=== PATIENT | female | born 1980 | race Caucasian/White ===

== ENCOUNTER 2017-09-24 08:50 | Inpatient (IN) | payer BC ==
[2017-09-24 10:35] VITALS: BMI 30.2
[2017-09-24] MEDS ORDERED: DINOPROSTONE 10 MG VAGINAL SUPPOSITORY VG ONE (10:45)
[2017-09-24] MEDS ORDERED: TUBERCULIN PPD 5 TU/0.1ML SYRINGE (IN PATIENT USE ONLY) ID ONE (10:45)
[2017-09-24] MEDS ORDERED: PROMETHAZINE HCL 25 MG/1 ML VIAL IVPUSH ONE (11:05)
[2017-09-24] MEDS ORDERED: BUTORPHANOL TARTRATE 1 MG/ML VIAL IVPUSH ONE (11:05)
[2017-09-24 11:22] LABS: BASOPHIL 0.3 % (0-2.0); EOSINOPHIL 0.5 % (0-4.5); MCHC 34.3 g/dl (32.0-36.0); MEAN CELL VOLUME 90.2 fl (80-96); MEAN PLT VOLUME 8.4 fl (7.5-11.1); NEUTROPHILS 74.3 % (42.8-82.8); PLATELET COUNT 218 K/MM3 (134-434); RDW 13.6 % (11.6-15.6); WHITE BLOOD COUNT 9.6 K/mm3 (4.0-10.0)
[2017-09-24 11:43] LABS: INR 0.95 (0.82-1.09); PROTHROMBIN TIME (PATIENT) 10.7 SEC (9.98-11.88)
[2017-09-24 11:45] LABS: ACTIVATED PTT 25.9 SECONDS (26.9-34.4)
[2017-09-24 11:56] LABS: ANION GAP 10 (8-16); CALCIUM 8.7 mg/dL (8.5-10.1); CO2 23 mmol/L (21-32); CREATININE 0.5 mg/dL (0.55-1.02); GLUCOSE,RANDOM 70 mg/dL (74-106)
[2017-09-24 14:36] LABS: HIV 1 & 2 AB NEGATIVE; HIV 1 AGp24 NEGATIVE
--- NOTE | 2017-09-24 14:53 | HP ---
Past Medical History - Primary Care Physician PCP:: Segundo Topete - Admission Chief Complaint: 40.1 weeks, AMA, IVF ,request of induction History of Present Illness: 37 y o f with hx of IVF, ama 40.1 weeks, requesting induction , rba discussed, cx closed 25, vx -3 mi, fhr cat1 no contraction History Source: Patient Limitations to Obtaining History: No Limitations - Past Medical History ...: 1 ...Para: 0 ...EDC by Sono: 09/24/17 Endocrine: Yes: Hypothyroidism - Past Surgical History Hx Myomectomy: No Hx Transabdominal Cerclage: No - Smoking History Smoking history: Never smoked - Alcohol/Substance Use Hx Alcohol Use: No - Social History Usual Living Arrangement: Yes: With Spouse History of Recent Travel: No Home Medications - Allergies Allergies/Adverse Reactions: Allergies Allergy/AdvReac Type Severity Reaction Status Date / Time latex Allergy Intermediate Verified 09/24/17 10:09 No Known Drug Allergies Allergy Verified 09/24/17 10:39 - Home Medications Home Medications: Ambulatory Orders Vitamins (Sjr) - 1 tab PO DAILY 09/24/17 Synthroid 75 mcg PO DAILY 09/24/17 Review of Systems - Review of Systems Constitutional: reports: No Symptoms Eyes: reports: No Symptoms Neck: reports: Stiffness Cardiovascular: reports: No Symptoms Respiratory: reports: No Symptoms Gastrointestinal: reports: No Symptoms Genitourinary: reports: No Symptoms Breasts: reports: No Symptoms Reported Musculoskeletal: reports: No Symptoms Integumentary: reports: No Symptoms Neurological: reports: No Symptoms Endocrine: reports: No Symptoms Hematology/Lymphatic: reports: No Symptoms Psychiatric: reports: No Symptoms Physical Exam - Maternity Vital Signs: Vital Signs Temperature 97.8 F 09/24/17 14:00 Pulse Rate 86 09/24/17 14:00 Respiratory Rate 18 09/24/17 14:00 Blood Pressure 135/75 09/24/17 14:00 O2 Sat by Pulse Oximetry (%) Constitutional: Yes: Well Nourished, No Distress, Calm Eyes: Yes: WNL, Conjunctiva Clear, EOM Intact HENT: Yes: WNL, Atraumatic, Normocephalic Neck: Yes: WNL, Supple, Trachea Midline Cardiovascular: Yes: WNL, Regular Rate and Rhythm Breast(s): Yes: WNL - Abdominal Exam/OB Fundal Height: 40 Number of Fetuses: Single Presentation: Vertex Contractions: No Intensity: Unaware Monitor Mode: External Heart Rate Location: [facility] Category: I Accelerations: Uniform Decelerations: None - Vaginal Exam/OB Vaginal Bleediing: No Speculum Exam: No Dilatation (cm): closed Effacement (%): 25 Amniotic Membrane Status: Intact Presentation: Vertex/Position Station: -3 - Physical Exam Edema: Yes Edema: LLE: Trace, RLE: Trace Deep Tendon Reflex Grade: Normal +2 Psychiatric: Yes: Alert - Labs Lab Results: CBC, BMP 09/24/17 11:03 09/24/17 11:03 Hemorrhage Risk Assessment - Risk Factors Medium Risk Factors: Yes: None High Risk Factors: Yes: None Risk Score: 1 Risk Level: Medium Risk Problem List - Problems (1) Postmaturity , 40-42 weeks gestation Code(s): O48.0 - POST-TERM (2) Post term over 40 weeks Code(s): O48.0 - POST-TERM (3) AMA (advanced maternal age) multigravida 35+ Code(s): O09.529 - SUPERVISION OF ELDERLY MULTIGRAVIDA, UNSPECIFIED TRIMESTER Qualifiers: Trimester: third trimester Qualified Code(s): O09.523 - Supervision of elderly multigravida, third trimester (4) Conceived by in vitro fertilization Code(s): Z78.9 - OTHER SPECIFIED HEALTH STATUS Assessment/Plan plan admit for cervidil induction
--- NOTE | 2017-09-24 15:03 | PN ---
Progress Note (short form) - Note Progress Note: fhr cat 1, cervidil inserted at 10 45 am, rba discussed Problem List - Problems (1) Postmaturity , 40-42 weeks gestation Code(s): O48.0 - POST-TERM (2) Post term over 40 weeks Code(s): O48.0 - POST-TERM (3) AMA (advanced maternal age) multigravida 35+ Code(s): O09.529 - SUPERVISION OF ELDERLY MULTIGRAVIDA, UNSPECIFIED TRIMESTER Qualifiers: Trimester: third trimester Qualified Code(s): O09.523 - Supervision of elderly multigravida, third trimester (4) Conceived by in vitro fertilization Code(s): Z78.9 - OTHER SPECIFIED HEALTH STATUS
--- NOTE | 2017-09-25 00:16 | PN ---
Progress Note (short form) - Note Progress Note: cx closed, 50, vx, cervidil removed fhr cat1 Problem List - Problems (1) Postmaturity , 40-42 weeks gestation Code(s): O48.0 - POST-TERM (2) Post term over 40 weeks Code(s): O48.0 - POST-TERM (3) AMA (advanced maternal age) multigravida 35+ Code(s): O09.529 - SUPERVISION OF ELDERLY MULTIGRAVIDA, UNSPECIFIED TRIMESTER Qualifiers: Trimester: third trimester Qualified Code(s): O09.523 - Supervision of elderly multigravida, third trimester (4) Conceived by in vitro fertilization Code(s): Z78.9 - OTHER SPECIFIED HEALTH STATUS
[2017-09-25] MEDS ORDERED: OXYTOCIN 15 UNITS/ LR 250 ML 15 UNIT/250 ML INFUS.BAG IVPB SCH (00:30)
[2017-09-25] MEDS ORDERED: OXYTOCIN 15 UNITS/ LR 250 ML 15 UNIT/250 ML INFUS.BAG IVPB ONE (00:40)
[2017-09-25] MEDS: DEXTROSE 5%-LACTATED RINGERS 1,000 ML IV SCH ×2 (01:00→08:45)
[2017-09-25] MEDS: LEVOTHYROXINE NA 75 MCG TABLET (FP) PO SCH (06:58)
--- NOTE | 2017-09-25 08:51 | PN ---
Progress Note (short form) - Note Progress Note: cx closed 70 vx -3 mi, fhr cat 1, contraction q 2 min Problem List - Problems (1) Postmaturity , 40-42 weeks gestation Code(s): O48.0 - POST-TERM (2) Post term over 40 weeks Code(s): O48.0 - POST-TERM (3) AMA (advanced maternal age) multigravida 35+ Code(s): O09.529 - SUPERVISION OF ELDERLY MULTIGRAVIDA, UNSPECIFIED TRIMESTER Qualifiers: Trimester: third trimester Qualified Code(s): O09.523 - Supervision of elderly multigravida, third trimester (4) Conceived by in vitro fertilization Code(s): Z78.9 - OTHER SPECIFIED HEALTH STATUS
[2017-09-25] MEDS ORDERED: CITRIC ACID/SODIUM CITRATE 30 ML UNIT-DOSE CUP PO ONE (09:45)
[2017-09-25] MEDS ORDERED: SYNTHROID 75 MCG PO SCH (10:00)
[2017-09-25] MEDS ORDERED: morphine SULFATE/Preservative Free 0.5 MG/ML (1cc Syringe) ONE (13:51)
[2017-09-25] MEDS ORDERED: ONDANSETRON 4 MG/2 ML VIAL IVPUSH PRN (14:02)
[2017-09-25] MEDS ORDERED: ePHEDrine SULFATE 50 MG/1 ML AMPULE ONE (14:20)
[2017-09-25] MEDS ORDERED: SUCCINYLCHOLINE CHLORIDE 200 MG/10 ML VIAL ONE (14:20)
[2017-09-25] MEDS ORDERED: KETOROLAC TROMETHAMINE 30 MG/1 ML VIAL ONE (14:28)
[2017-09-25] MEDS ORDERED: OXYTOCIN 20 UNITS in 0.9% NS 20 UNIT/1,000 ML INFUS.BAG IV ONE ×2 (14:56→17:09)
[2017-09-25] MEDS ORDERED: ELECTROLYTE-148 SOLN 1,000 ML IV SCH (15:00)
--- NOTE | 2017-09-25 15:02 | PN ---
Progress Note (short form) - Note Progress Note: cx closed , 50 vx -3 mi, no cervical changes with pitocin a.wants c/s ,rba discussed Problem List - Problems (1) Postmaturity , 40-42 weeks gestation Code(s): O48.0 - POST-TERM (2) Post term over 40 weeks Code(s): O48.0 - POST-TERM (3) AMA (advanced maternal age) multigravida 35+ Code(s): O09.529 - SUPERVISION OF ELDERLY MULTIGRAVIDA, UNSPECIFIED TRIMESTER Qualifiers: Trimester: third trimester Qualified Code(s): O09.523 - Supervision of elderly multigravida, third trimester (4) Conceived by in vitro fertilization Code(s): Z78.9 - OTHER SPECIFIED HEALTH STATUS
[2017-09-25] MEDS ORDERED: ceFAZolin SODIUM 1 GM VIAL ONE (15:16)
[2017-09-25] MEDS ORDERED: BENZOCAINE 20% 57 GM BOTTLE TP PRN (15:52)
[2017-09-25] MEDS ORDERED: METHYLERGONOVINE MALEATE 0.2 MG/1 ML AMP IM PRN (15:52)
[2017-09-25] MEDS ORDERED: diphenhydrAMINE HCL 25 MG CAPSULE (FP) PO PRN (15:52)
[2017-09-25] MEDS ORDERED: WITCH HAZEL 50% (TUCKS) 40 PAD/JAR PAD TP PRN (15:52)
[2017-09-25] MEDS ORDERED: IBUPROFEN 800 MG/8 ML IJ IVPB PRN (15:52)
[2017-09-25] MEDS ORDERED: BENZOCAINE 28 GM HEMORRHOIDAL OINTMENT PR PRN (15:52)
[2017-09-25] MEDS ORDERED: DEXTROSE 5%-LACTATED RINGERS 1,000 ML IV SCH (16:00)
[2017-09-25] MEDS ORDERED: OXYTOCIN 20 UNITS in 0.9% NS 20 UNIT/1,000 ML INFUS.BAG IV SCH (16:00)
[2017-09-25] MEDS: CEFAZOLIN 1 GM PUSH 1 GM/10 ML DISP.SYRIN IVPUSH SCH (23:04)
--- NOTE | 2017-09-26 03:00 | PN ---
Post Progress Note - Subjective Subjective: Patient without acute complaints. Currently NPO Hernandez DC'd this AM, no voiding yet. No ambulation or flatus yet. Denies fevers or chills. Pain well controlled. Post Day: 1 Type of Delivery: Primary C/S Vital Signs: Vital Signs Temperature 100.0 F H 09/26/17 01:04 Pulse Rate 80 09/26/17 01:04 Respiratory Rate 20 09/26/17 01:04 Blood Pressure 122/66 09/26/17 01:04 O2 Sat by Pulse Oximetry (%) 100 09/25/17 17:05 Breast Exam: Yes: Soft Uterus: Yes: Fundus Firm, Fundus below umbilicus, Non-tender Incision: Yes: Dressing dry and intact Abdomen/GI: Yes: Abdomen soft. No: Tender, Passing flatus Lochia: Yes: Serosa Lochia, amount: Small Extremities: Yes: Calves non-tender. No: Edema - Labs Labs: CBC WBC 9.6 K/mm3 (4.0-10.0) 09/24/17 11:03 RBC 3.75 M/mm3 (3.60-5.2) 09/24/17 11:03 Hgb 11.6 GM/dL (10.7-15.3) 09/24/17 11:03 Hct 33.8 % (32.4-45.2) 09/24/17 11:03 MCV 90.2 fl (80-96) 09/24/17 11:03 MCH 31.0 pg (25.7-33.7) 09/24/17 11:03 MCHC 34.3 g/dl (32.0-36.0) 09/24/17 11:03 RDW 13.6 % (11.6-15.6) 09/24/17 11:03 Plt Count 218 K/MM3 (134-434) 09/24/17 11:03 MPV 8.4 fl (7.5-11.1) 09/24/17 11:03 Neutrophils % 74.3 % (42.8-82.8) 09/24/17 11:03 Lymphocytes % 16.6 % (8-40) 09/24/17 11:03 Monocytes % 8.3 % (3.8-10.2) 09/24/17 11:03 Eosinophils % 0.5 % (0-4.5) 09/24/17 11:03 Basophils % 0.3 % (0-2.0) 09/24/17 11:03 Assessment/Plan 37 yo POD # 1 s/p CD, afebrile, vital signs stable, doing well 1. Continue routine postoperative care. 2. Follow up AM CBC 3. Rh positive status, no rhogam indicated. 4. Encourage ambulation and incentive spirometer use 5. Continue oral pain medication 6. Anticipate discharge home postoperative day #3 or #4
[2017-09-26] MEDS: CEFAZOLIN 1 GM PUSH 1 GM/10 ML DISP.SYRIN IVPUSH SCH (06:01)
[2017-09-26] MEDS: LEVOTHYROXINE NA 75 MCG TABLET (FP) PO SCH (06:13)
[2017-09-26] MEDS ORDERED: ACETAMINOPHEN 325 MG TABLET (FP) ONE (07:55)
--- NOTE | 2017-09-26 07:56 | OP ---
DATE OF OPERATION: 09/25/2017 PREOPERATIVE DIAGNOSES: at 40 weeks, advanced maternal age, in vitro fertilization , and Cervidil and Pitocin induction, failure of induction. POSTOPERATIVE DIAGNOSES: at 40 weeks, advanced maternal age, in vitro fertilization , and Cervidil and Pitocin induction, failure of induction. PROCEDURE: Primary low-segment transverse section and cord blood collection. SURGEON: Segundo Topete MD WEB DEVELOPER PROGRAMMER: LEXIE Nazario ESTIMATED BLOOD LOSS: 500 mL DESCRIPTION OF OPERATIVE PROCEDURE: Patient was taken to the operating room. Under adequate spinal anesthesia, abdomen and perineum were prepped and draped. Pfannenstiel abdominal skin incision was made. Abdominal wall was cut layer by layer until peritoneum was exposed and incised. Upon entering the abdominal cavity, lower uterine segment was identified and uterovesical fold of peritoneum established. Bladder was pushed down. A low transverse uterine incision was made. Incision extended laterally. Amniotic sac was entered, clear fluid. Head delivered from occiput posterior position. Nasopharynx was suctioned, and live baby girl was delivered. Placenta was delivered manually. Uterine cavity was cleaned of all remaining tissue. Uterine incision was closed in 2 layers, first layer with 0 Biosyn continuous suture, the second layer with 0 Biosyn imbricating the first layer. Bladder flap was closed with 0 Biosyn continuous suture. Both tubes and ovaries were checked and normal. No active bleeding was seen. All the lap pads, sponge, and instrument counts were correct. Then, peritoneum was closed with 0 Biosyn continuous suture. Muscles were brought together with interrupted suture of 0 Biosyn. Fascia was closed with 0 Biosyn continuous suture, subcutaneous fat with interrupted suture of 3-0 Biosyn, and the skin was closed with 4-0 Biosyn subcuticular suture. Patient tolerated the procedure well, left the OR in good condition. Farhat [id number]
[2017-09-26] MEDS: IBUPROFEN 600 MG TABLET (FP) PO PRN ×3 (08:00→21:28)
[2017-09-26] MEDS: SIMETHICONE 80 MG TAB.CHEW (FP) PO PRN ×3 (08:01→17:34)
[2017-09-26 08:41] LABS: BASOPHIL 0.3 % (0-2.0); EOSINOPHIL 0.4 % (0-4.5); MCH 30.3 pg (25.7-33.7); MCHC 33.3 g/dl (32.0-36.0); MEAN CELL VOLUME 91.1 fl (80-96); MEAN PLT VOLUME 8.6 fl (7.5-11.1); NEUTROPHILS 78.3 % (42.8-82.8); PLATELET COUNT 206 K/MM3 (134-434); RDW 14.1 % (11.6-15.6); WHITE BLOOD COUNT 12.8 K/mm3 (4.0-10.0)
[2017-09-26] MEDS: ENOXAPARIN NA (PORCINE) 40 MG/0.4 ML DISP.SYRIN SQ SCH (10:13)
[2017-09-26] MEDS: DEXTROSE 5%-LACTATED RINGERS 1,000 ML IV SCH (14:57)
[2017-09-26] MEDS: ACETAMINOPHEN 325 MG TABLET (FP) PO PRN ×2 (15:47→21:27)
[2017-09-26] MEDS ORDERED: BISACODYL 10 MG SUPP.RECT PR PRN (15:52)
[2017-09-26] MEDS: oxyCODONE HCL 5 MG TABLET PO PRN ×2 (17:34→21:27)
[2017-09-27] MEDS: SIMETHICONE 80 MG TAB.CHEW (FP) PO PRN ×4 (01:40→22:10)
[2017-09-27] MEDS: IBUPROFEN 600 MG TABLET (FP) PO PRN ×3 (01:41→22:09)
[2017-09-27] MEDS: oxyCODONE HCL 5 MG TABLET PO PRN ×4 (01:41→17:56)
[2017-09-27] MEDS: LEVOTHYROXINE NA 75 MCG TABLET (FP) PO SCH (06:12)
--- NOTE | 2017-09-27 08:21 | PN ---
Post Progress Note - Subjective Subjective: No complaints, doing well. Post Day: 2 Type of Delivery: Primary C/S Vital Signs: Vital Signs Temperature 98.6 F 09/27/17 08:14 Pulse Rate 73 09/27/17 08:14 Respiratory Rate 20 09/27/17 08:14 Blood Pressure 106/53 09/27/17 08:14 O2 Sat by Pulse Oximetry (%) 100 09/25/17 17:05 Breast Exam: Yes: Soft Uterus: Yes: Fundus Firm, Fundus below umbilicus, Non-tender Incision: Yes: Sutures intact Abdomen/GI: Yes: Abdomen soft, Tolerating PO Lochia: Yes: Rubra Lochia, amount: Small Extremities: Yes: Calves non-tender Perineum: Yes: Intact Activity: Ambulating - Labs Labs: CBC WBC 12.8 K/mm3 (4.0-10.0) H D 09/26/17 08:00 RBC 3.33 M/mm3 (3.60-5.2) L 09/26/17 08:00 Hgb 10.1 GM/dL (10.7-15.3) L D 09/26/17 08:00 Hct 30.4 % (32.4-45.2) L 09/26/17 08:00 MCV 91.1 fl (80-96) 09/26/17 08:00 MCH 30.3 pg (25.7-33.7) 09/26/17 08:00 MCHC 33.3 g/dl (32.0-36.0) 09/26/17 08:00 RDW 14.1 % (11.6-15.6) 09/26/17 08:00 Plt Count 206 K/MM3 (134-434) 09/26/17 08:00 MPV 8.6 fl (7.5-11.1) 09/26/17 08:00 Neutrophils % 78.3 % (42.8-82.8) 09/26/17 08:00 Lymphocytes % 13.1 % (8-40) D 09/26/17 08:00 Monocytes % 7.9 % (3.8-10.2) 09/26/17 08:00 Eosinophils % 0.4 % (0-4.5) 09/26/17 08:00 Basophils % 0.3 % (0-2.0) 09/26/17 08:00 Assessment/Plan 37yo P1 s/p primary LT C/S, doing well stable, afebrile. care instructions reviewed. Continue routine postop care. Ambulation encouraged.
--- NOTE | 2017-09-27 08:27 | DS ---
Physical Exam-IRRIGATION ENGINEER Vital Signs: Vital Signs Temperature 98.6 F 09/27/17 08:14 Pulse Rate 73 09/27/17 08:14 Respiratory Rate 20 09/27/17 08:14 Blood Pressure 106/53 09/27/17 08:14 O2 Sat by Pulse Oximetry (%) 100 09/25/17 17:05 Constitutional: Yes: Well Nourished, No Distress, Calm Eyes: Yes: WNL, Conjunctiva Clear HENT: Yes: WNL, Atraumatic, Normocephalic Neck: Yes: WNL, Supple, Trachea Midline Cardiovascular: Yes: WNL, Regular Rate and Rhythm Respiratory: Yes: WNL, Regular, CTA Bilaterally Gastrointestinal: Yes: WNL, Normal Bowel Sounds, Soft ...Rectal Exam: Yes: Deferred Renal/: Yes: WNL Internal Exam Deferred: Yes ....Post : Yes: Uterus firm, Uterus non-tender Breast(s): Yes: WNL Musculoskeletal: Yes: WNL Extremities: Yes: WNL Edema: Yes Edema: LLE: Trace, RLE: Trace Integumentary: Yes: WNL Wound/Incision: Yes: Clean/Dry, Well Approximated, Sutures Intact Neurological: Yes: WNL, Alert, Oriented ...Motor Strength: WNL Psychiatric: Yes: WNL, Alert, Oriented Labs: CBC, BMP 09/26/17 08:00 09/24/17 11:03 Delivery - Delivery Section: Low Flap Transverse Type of Anesthesia: Spinal Episiotomy/Laceration: None EBL (cc): 500 Delivery, Single - Stages of Labor Date of Delivery: 09/25/17 Time of Delivery: 15:26 Time Placenta Delivered: 15:27 Placenta: Yes: Manual Removal, Normal Configuration - Condition of Agency Sales Director/Human Resources Receptionist Present: Yes Name: Paulina Cohen Infant Gender: Female Weight: 3.6 kg Position: Right, OP Total Hours ROM (Hrs/Mins): 2 minutes - 1 Minute Total Score: 9 5 Minutes Total Score: 9 - Feeding Plan Initial Plan: Exclusive throughout hospitalization Discharge Summary Reason For Visit: INDUCTION OF LABOR Current Active Problems AMA (advanced maternal age) multigravida 35+ (Acute) delivery, delivered, current hospitalization (Acute) Conceived by in vitro fertilization (Acute) Post term over 40 weeks (Acute) Postmaturity , 40-42 weeks gestation (Acute) Procedures: Principal: LT C/S Hospital Course: Normal recovery Condition: Good - Instructions Diet, Activity, Other Instructions: Physical activity Resume your normal everyday activity as tolerated no heavy lifting or exercise until seen by your surgeon. You may walk unlimited arabella of and climb stairs. You may resume driving the car when you feel safe and comfortable behind the wheel. No sexual activity as instructed. Wound care If you have a bandage, leave it on, and keep dry for 48-72 hours. After that time discard the outer bandage. If they are tapes on the skin under the out of bandage leave them in place. They will peel off in the next 7 to 10 days. Do Not Peel them off. You may shower the day after surgery. If there are tapes present on the skin, you may shower over them. Diet There are no dietary restrictions. Eat healthy, high-fiber foods. Drink 6 to 8 glasses of liquid each day. This will assist in keeping your bowels are regular. Pain management You may take Tylenol or acetaminophen or Ibuprofen (for example, Motrin, Advil etc.) from my pain prescription medication is ordered should be taken as prescribed for moderate to severe pain. Call MD for any of the following: Severe pain not relieved by medication Fever of 101 or higher Excessive bleeding or drainage on dressing Inability to urinate Referrals: Segundo Topete MD [Staff Physician] - Disposition: HOME - Home Medications Comprehensive Discharge Medication List: Ambulatory Orders Vitamins (Sjr) - 1 tab PO DAILY 09/24/17 Synthroid 75 mcg PO DAILY 09/24/17 Oxycodone HCl/Acetaminophen [Percocet 5-325 mg Tablet -] 1 - 2 tab PO Q6H PRN # 20 tab MDD 8 09/27/17
[2017-09-27] MEDS: ENOXAPARIN NA (PORCINE) 40 MG/0.4 ML DISP.SYRIN SQ SCH (10:19)
[2017-09-27] MEDS: BACITRACIN 15 GM TUBE TOPICAL OINTMENT TP SCH ×2 (11:54→22:15)
--- NOTE | 2017-09-27 17:00 | SURG ---
Surgery Pellet Machine Operator Note Pellet Machine Operator: Chanel Peace PA-C Date of Service: 09/25/17 Diagnosis: at 40 weeks, failure of induction Procedure: section I was present for the entirety of the operative procedure. For further detail, please refer to operative report. Visit type - Case Type Case Type: Scheduled Admission - Emergency Emergency Visit: No - New patient This patient is new to me today: Yes Date on this admission: 09/27/17
[2017-09-27] MEDS: ACETAMINOPHEN 325 MG TABLET (FP) PO PRN ×2 (17:56→22:10)
[2017-09-27] MEDS ORDERED: SENNOSIDES/DOCUSATE COMBO (SENNA PLUS) TABLET (UD) PO PRN (22:00)
[2017-09-28] MEDS ORDERED: ACETAMINOPHEN 325 MG TABLET (FP) PO PRN (01:09)
[2017-09-28] MEDS: SIMETHICONE 80 MG TAB.CHEW (FP) PO PRN ×2 (05:15→11:41)
[2017-09-28] MEDS: oxyCODONE HCL 5 MG TABLET PO PRN (05:15)
[2017-09-28] MEDS: IBUPROFEN 600 MG TABLET (FP) PO PRN ×2 (05:15→11:39)
[2017-09-28] MEDS: LEVOTHYROXINE NA 75 MCG TABLET (FP) PO SCH (06:20)
[2017-09-28 08:47] LABS: BASOPHIL 0.3 % (0-2.0); EOSINOPHIL 2.5 % (0-4.5); MCH 30.9 pg (25.7-33.7); MCHC 33.6 g/dl (32.0-36.0); MEAN CELL VOLUME 91.8 fl (80-96); MEAN PLT VOLUME 8.3 fl (7.5-11.1); NEUTROPHILS 69.7 % (42.8-82.8); PLATELET COUNT 205 K/MM3 (134-434); RDW 13.7 % (11.6-15.6); WHITE BLOOD COUNT 8.2 K/mm3 (4.0-10.0)
[2017-09-28] MEDS: ENOXAPARIN NA (PORCINE) 40 MG/0.4 ML DISP.SYRIN SQ SCH (09:48)
[2017-09-28] MEDS: BACITRACIN 15 GM TUBE TOPICAL OINTMENT TP SCH (10:00)
[2017-09-28 10:24] VITALS: BP 115/65; PULSE 72; TEMP 98.6
--- NOTE | 2017-10-02 14:09 | PATH ---
Surgical Pathology Report Patient Name: ANTONIO LARSON [facility]. Rec. #: [id number] /Age/Gender: 1980 (Age: 37) / F Account: [id number] Location: [facility] OBS/SMALL MACHINE BINDERY OPERATOR Taken: 09/25/2017 Received: 09/26/2017 Reported: 10/02/2017 Physicians: Segundo Topete M.D. Specimen(s) Received PLACENTA Clinical History , advanced maternal age, IVF, 40.1 weeks' gestation Failed induction, history of hypothyroidism Final Diagnosis PLACENTA, DELIVERY: FOCALLY DISRUPTED THIRD TRIMESTER PLACENTA WITH THREE VESSEL UMBILICAL CORD AND UNREMARKABLE PLACENTAL MEMBRANES. Electronically Signed Don Pillai M.D. Gross Description The specimen is received fresh labeled placenta and is a 475 gram, 19.0 x 15.0 x 2.3 cm. placenta with attached membranes and umbilical cord. The attached membranes are rivera, translucent with focal opacities and insert marginally. The umbilical cord measures 25 cm. in length and averages 1.2 cm. in diameter. The cord inserts eccentrically, 3 cm. to the nearest margin. No true knots or strictures are identified. Cut surface of the umbilical cord reveals 3 vessels. The surface is betancur blue with moderate fibrin deposition and appropriate caliber vessels. The maternal surface is red-brown with focal defects. Sectioning reveals red-brown, spongy parenchyma. No lesions are identified. Integration Architect sections are submitted in three cassettes as follows: 1- membrane rolls and umbilical cord; 2-3- full thickness sections of placenta. 09/28/2017 [facility]09/28/2017
== END 2017-09-28 13:00 | disposition home or self-care (01) | DRG 765 ==
LOC: JLDR 08:50 → J3W 09-25 17:58
PROVIDERS: ADMIT Obstetrics & Gynecology; ATTEND Obstetrics & Gynecology
PROC: 10D00Z1 Extraction of Products of Conception, Low, Open Approach (ICD-10-PCS; principal; 2017-09-25)
DX: O48.0 Post-term pregnancy (principal); O36.0930 Maternal care for other rhesus isoimmunization, third trimester, not applicable or unspecified; O61.0 Failed medical induction of labor; O99.283 Endocrine, nutritional and metabolic diseases complicating pregnancy, third trimester; E03.9 Hypothyroidism, unspecified; Z37.0 Single live birth; Z3A.40 40 weeks gestation of pregnancy
CPT/HCPCS: 36415; 80048; 85025; 85610; 85730; 86593; 86850; 86900; 86901; 87389; 88307-TC

== ENCOUNTER 2020-07-14 04:36 | Day surgery (SDC) | payer BC ==
[2020-07-13 12:06] VITALS: BMI 22.8
[2020-07-14] MEDS ORDERED: fentaNYL CITRATE 250 MCG/5 ML VIAL ONE (10:54)
[2020-07-14] MEDS ORDERED: LIDOCAINE HCL/PF 2% SDV 5ML VIAL ONE (10:54)
[2020-07-14] MEDS ORDERED: DEXAMETHASONE SOD PHOSPHATE 4 MG/1 ML VIAL ONE ×2 (10:54→12:46)
[2020-07-14] MEDS ORDERED: ROCURONIUM BROMIDE 50 MG/5 ML SYRINGE ONE (10:54)
[2020-07-14] MEDS ORDERED: PROPOFOL 20 ML ONE (10:54)
[2020-07-14] MEDS ORDERED: MIDAZOLAM HCL 2 MG/2 ML SINGLE DOSE VIAL ONE (10:54)
[2020-07-14] MEDS ORDERED: SCOPOLAMINE HYDROBROMIDE 1 PATCH PATCH.TD72 ONE (11:04)
--- NOTE | 2020-07-14 12:05 | HP ---
History & Physical Update - History History: No Change - Physical Physical: No Change - Assessment Assessment: No Change - Plan Plan: No Change (H&P reviwed , no changed , for laparoscopic BSO ROS discussed with patient negative)
[2020-07-14] MEDS ORDERED: ceFAZolin SODIUM 1 GM VIAL IVPB ONE (12:18)
[2020-07-14] MEDS ORDERED: ceFAZolin SODIUM 1 GM VIAL ONE (12:24)
[2020-07-14] MEDS ORDERED: NEOSTIGMINE METHYLSULFATE 0.5 MG/ML - 10 ML MDV ONE (12:51)
[2020-07-14] MEDS ORDERED: KETOROLAC TROMETHAMINE 30 MG/1 ML VIAL ONE (12:51)
[2020-07-14] MEDS ORDERED: GLYCOPYRROLATE 0.2 MG/1 ML VIAL ONE (12:51)
[2020-07-14] MEDS ORDERED: IBUPROFEN 600 MG TABLET (FP) PO PRN (13:50)
[2020-07-14] MEDS ORDERED: ONDANSETRON 4 MG/2 ML VIAL IVPUSH PRN ×2 (13:50→14:04)
[2020-07-14] MEDS ORDERED: oxyCODONE HCL 5 MG TABLET PO PRN ×2 (13:50→14:04)
[2020-07-14] MEDS ORDERED: IBUPROFEN 800 MG/8 ML IJ IVPB PRN (13:50)
--- NOTE | 2020-07-14 13:53 | OP ---
Operative Note - Note: Operative Date: 07/14/20 Pre-Operative Diagnosis: personal hx of breast cancer Operation: laparoscopic, BSO Findings: bilateral ovarian endometriosis Surgeon: Segundo Topete Power Transformer Repairer: Karly Raines Anesthesia: General Specimens Removed: both tubes and ovaries Estimated Blood Loss (mls): 25 Drains & Tubes with Location: none Blood Volume Replaced (mls): 0 Operative Report Dictated: Yes
[2020-07-14] MEDS ORDERED: ELECTROLYTE-148 SOLN 1,000 ML IV SCH (14:00)
[2020-07-14] MEDS ORDERED: PROMETHAZINE HCL 25 MG/1 ML VIAL IVPUSH PRN (14:04)
[2020-07-14] MEDS ORDERED: LACTATED RINGERS SOLUTION 1,000 ML IV SCH (14:15)
[2020-07-14] MEDS ORDERED: IBUPROFEN 600 MG TABLET (FP) PO ONE (15:35)
[2020-07-14 16:26] VITALS: BP 111/64; PULSE 66; TEMP 97.8
--- NOTE | 2020-07-16 09:44 | OP ---
DATE OF OPERATION: 07/14/2020 PREOPERATIVE DIAGNOSIS: Personal history of breast cancer. POSTOPERATIVE DIAGNOSIS: Personal history of breast cancer. PROCEDURE: Bilateral salpingo-oophorectomy laparoscopic. SURGEON: Segundo Bradshaw MD ANESTHESIA: General. CLERK TO JUSTICE: Karly Raines MD ESTIMATED BLOOD LOSS: 25 mL. OPERATIVE REPORT: Patient was taken to the operating room. After adequate general anesthesia in dorsal lithotomy position the abdomen and perineum were prepped and draped. Examination under anesthesia revealed the external genitalia to be normal. Vagina was normal. Cervix was clean, no lesion. Uterus normal size. Adnexa no masses palpable. Then Hulka was introduced into uterine cavity for manipulation. Hernandez was inserted and patient was prepped and draped for the pelviscopy. A small infraumbilical skin incision was made over previous incision. Under direct vision the 5-mm trocar was introduced through the umbilical area and then scope was introduced and then under direct vision a 10-mm trocar to the left hypogastric area and a 5-mm through the right hypogastric area. Visualization of the pelvic cavity showed evidence of endometriosis and endometrioma on both ovaries. Uterus was normal size with a small fibroid on the fundal area. No cul-de-sac adhesion. Bladder was normal. Then the right tube and ovary were grasped with grasper and then with a LigaSure bipolar cautery along the mesosalpinx cauterized and cut, and then the infundibulopelvic ligament on the side was grasped with the bipolar cautery, cauterized and cut, and then the utero-ovarian ligament was grasped with bipolar cautery, cauterized and cut. The same procedure for the opposite tube and ovary. Then a 10-mm bag was introduced through the 10-mm trocar and the specimen, the right tube and ovary and left tube and ovary, was placed in the bag and removed through the 10-mm trocar. Then the 10-mm trocar was closed with interrupted suture of 0 Vicryl and then subcutaneous fat with interrupted suture of 0 Vicryl, and then skin was closed with 3-0 Biosyn mattress suture. Patient tolerated procedure well, left the OR in good condition. SEGUNDO BRADSHAW M.D. [id number]
--- NOTE | 2020-07-16 18:29 | PATH ---
Cytology Non-Gynecological Report Patient Name: ANTONIO FERREIRA Med. Rec. #: [id number] /Age/Gender: 1980 (Age: 40) / F Account: [id number] Location: [facility] SURGICAL Taken: 07/14/2020 Received: 07/14/2020 Reported: 07/16/2020 Physicians: Segundo Topete M.D. Specimen(s) Received PELVIC WASHINGS Clinical History Pelvic washings for cytology Final Diagnosis PELVIC WASHINGS FOR CYTOLOGY: SATISFACTORY FOR EVALUATION. NO MALIGNANT CELLS IDENTIFIED. MESOTHELIAL CELLS IN HEMORRHAGIC BACKGROUND WITH SCATTERED HEMOSIDERIN LADEN MACROPHAGES PRESENT. Comment: See concurrent excision ([id number]). Electronically Signed Christen Sue M.D. Gross Description Approximately 35 cc of bloody fluid received fresh. One cytofunnel prepared and Pap stained. One cellblock prepared.
--- NOTE | 2020-07-17 13:31 | PATH ---
Surgical Pathology Report Patient Name: ANTONIO FERREIRA [facility]. Rec. #: [id number] /Age/Gender: 1980 (Age: 40) / F Account: [id number] Location: [facility] SURGICAL Taken: 07/14/2020 Received: 07/15/2020 Reported: 07/17/2020 Physicians: Segundo Topete M.D. Specimen(s) Received BILATERAL FALLOPIAN TUBES AND BILATERAL OVARIES Clinical History Personal history of malignant neoplasm of breast Final Diagnosis BILATERAL FALLOPIAN TUBES AND OVARIES, BILATERAL SALPINGO-OOPHORECTOMY: BILATERAL OVARIES WITH ENDOMETRIOSIS; LARGER OVARY WITH ENDOMETRIOTIC CYST. BILATERAL FALLOPIAN TUBES WITH ENDOSALPINGOSIS (INCLUDING FULL LUMINAL PORTION AND FIMBRIATED END). TUBO-OVARIAN ADHESIONS. Comment: See concurrent cytology ([id number]). Electronically Signed Christen Sue M.D. Gross Description Received in formalin labeled "bilateral fallopian tubes and bilateral ovaries," are 2 undesignated fallopian tubes and 2 undesignated ovaries. The shorter fallopian tube is fimbriated and measures 5.5 cm in length. The outer surface is rivera-zamorano and smooth. Sectioning reveals an unremarkable lumen. The smaller ovary is 2.2 x 1.6 x 0.8 cm. The outer surface is rivera-yellow, convoluted and smooth. Sectioning reveals unremarkable ovarian parenchyma. The larger ovary measures 3.5 x 3.0 x 1.3 cm. The outer surface is rivera-zamorano with a focal large defect. Sectioning reveals a hemorrhagic cystic structure comprising the bulk of the ovarian parenchyma. There is minimal normal remaining ovarian parenchyma. The specimen is entirely submitted in 14 cassettes as follows: 1-shorter fallopian tube fimbria; 7-1-gisuw-sections of shorter fallopian tube from distal to proximal; 4-longer fallopian tube fimbria; 9-1-zjfgr-sections of longer fallopian tube from distal to proximal; 7-9-smaller ovary; 67-06-qscgnw ovary. 07/15/2020 [facility]07/15/2020
== END 2020-07-14 16:15 | disposition home or self-care (01) ==
LOC: JASU-SURG 04:36
PROVIDERS: ATTEND Obstetrics & Gynecology
PROC: 0UB74ZZ Excision of Bilateral Fallopian Tubes, Percutaneous Endoscopic Approach (ICD-10-PCS; 2020-07-14)
PROC: 0UB24ZZ Excision of Bilateral Ovaries, Percutaneous Endoscopic Approach (ICD-10-PCS; principal; 2020-07-14 11:00)
DX: Z85.3 Personal history of malignant neoplasm of breast (principal)
CPT/HCPCS: 81025; 88108; 88305-TC; 94760

== ENCOUNTER 2023-04-10 04:43 | Day surgery (SDC) | payer BC ==
[2023-04-07 11:17] VITALS: BMI 21.8
[2023-04-10 11:06] VITALS: TEMP 98
[2023-04-10 11:17] VITALS: RESP 15
[2023-04-10 12:00] VITALS: BP 101/56; PULSE 63
== END 2023-04-10 11:53 | disposition home or self-care (01) ==
LOC: JASU-ENDO 04:43
PROVIDERS: ATTEND Internal Medicine Gastroenterology
PROC: 0DJD8ZZ Inspection of Lower Intestinal Tract, Via Natural or Artificial Opening Endoscopic (ICD-10-PCS; principal; 2023-04-10 09:30)
DX: Z12.11 Encounter for screening for malignant neoplasm of colon (principal); K64.8 Other hemorrhoids; K59.89 Other specified functional intestinal disorders
CPT/HCPCS: 81025

== ENCOUNTER 2023-05-01 05:43 | Day surgery (SDC) | payer BC ==
[2023-04-27 16:18] VITALS: BMI 21.8
[2023-05-01 08:41] VITALS: TEMP 97.7
[2023-05-01 09:17] VITALS: BP 101/64; PULSE 68; RESP 14
== END 2023-05-01 09:35 | disposition home or self-care (01) ==
LOC: JASU-ENDO 05:43
PROVIDERS: ATTEND Internal Medicine Gastroenterology
PROC: 0DB78ZX Excision of Stomach, Pylorus, Via Natural or Artificial Opening Endoscopic, Diagnostic (ICD-10-PCS; 2023-05-01)
PROC: 0DB68ZX Excision of Stomach, Via Natural or Artificial Opening Endoscopic, Diagnostic (ICD-10-PCS; principal; 2023-05-01 08:00)
DX: K29.50 Unspecified chronic gastritis without bleeding (principal); K31.7 Polyp of stomach and duodenum
CPT/HCPCS: 88305-TC; 88342-TC